=== PATIENT | female | born 1980 | race Caucasian/White ===

== ENCOUNTER → 2022-03-17 15:36 | Outpatient (CLI) | payer OTHER, MEDICAID, SELFPAY ==
--- NOTE | 2022-03-17 | DI.MG.S_ITS ---
BILATERAL DIGITAL SCREENING MAMMOGRAM 3D/2D WITH CAD: 03/17/2022 CLINICAL: Routine screening. Baseline exam. No prior exams were available for comparison. Both breasts are heterogeneously dense, which may obscure small masses (category c / 51-75% glandular tissue). Current study was also evaluated with a Computer Aided Detection (CAD) system. No significant masses, calcifications, or other findings are seen in either breast. IMPRESSION: NEGATIVE There is no mammographic evidence of malignancy. A 1 year screening mammogram is recommended. Based on the Tyrer Cuzick model (a risk assessment model) the patient's lifetime risk is 10.2% and her 10 year risk is 1.6%. According to the ACR, ACS, and NCCN guidelines, an annual breast MRI exam along with mammogram is recommended if the patient's lifetime risk is 20% or greater. This exam was interpreted at Station ID: [id number]. NOTE: For mammograms, a report in lay terms will be sent to the patient. Approximately 15% of breast malignancies will not be visualized mammographically. In the management of a palpable breast mass, a negative mammogram must not discourage biopsy of a clinically suspicious lesion. Electronically Signed By: Nito Soliman M.D., jr/jimmy:03/18/2022 13:54:02 letter sent: Normal Exam ACR BI-RADS Category 1: Negative 3341F
== END ==
PROVIDERS: PCP Family Medicine; Referring Provider Family Medicine; Visit Provider Family Medicine
DX: Z12.31 Encounter for screening mammogram for malignant neoplasm of breast (principal)
CPT/HCPCS: 77063; 77067

== ENCOUNTER 2022-06-16 22:45 | Emergency (ER) | payer OTHER, MEDICAID, SELFPAY ==
[2022-06-16 22:56] VITALS: BP 116/67; PULSE 86; RESP 17; TEMP 36.4; O2SAT 97; BMI 35.7
[2022-06-16 23:01] VITALS: BP 118/67; PULSE 82; RESP 16; TEMP 36.4; O2SAT 98
--- NOTE | 2022-06-16 23:51 | ED_ITS ---
HPI - Wound/Laceration General Chief Complaint: Wound/Laceration Stated Complaint: lt finger cut Time Seen by Provider: 06/16/22 23:32 Source: patient Mode of arrival: Ambulatory Limitations: no limitations History of Present Illness HPI narrative: This is a 41-year-old female who presents with complaint of laceration to the 2nd finger on her left hand. Patient was scooping ice cream with a butter knife. Patient states she went to apply some additional pressure and it slipped and struck her opposite hand in the 2nd finger causing a laceration. She states seems to be deep blood quite a bit. She denies any numbness, tingling or weakness she states she can take it through full range of motion. She denies any other injuries. Patient states tetanus is not currently up-to-date. She states she gets steroid injections into her eyes and occasionally gets migraines but no other medical issues. Patient does vape, occasional alcohol, no illicit. Has primary care that she follows with. She is accompanied by her brother. Related Data Allergies Allergy/AdvReac Type Severity Reaction Status Date / Time No Known Drug Allergies Allergy Verified 06/16/22 22:56 Review of Systems Review of Systems ROS Unobtainable: All systems reviewed & are unremarkable except as noted in HPI and below Patient History tobacco type: vaping alcohol intake frequency: a few times a month Substance Use Type: does not use Exam Narrative Exam Narrative: GENERAL: Alert and oriented x three, female in mild distress HEENT: Head normocephalic, atraumatic, EOMI, pupils reactive, face symmetric, moist mucous membranes NECK: Supple, full range of motion EXTREMITIES: Normal range of motion, no clubbing or edema. Neurovascularly intact. Patient has laceration to the base of the 2nd digit on left hand, linear through the subcutaneous tissue, no tendon or ligamentous involvement. No bony exposure. It is on the palmar side of the 2nd digit just distal to the distal proximal interphalangeal joint. Patient has full range of motion. Full flexion, extension, adduction and abduction. Patient cap refill less than 2 seconds. Normal sensation throughout. No other injuries or skin changes. NEUROLOGICAL: Cranial nerves II through XII grossly intact. Moving all extremities SKIN: Warm, dry, no petechiae, no rashes or lesions. Initial Vital Signs Initial Vital Signs: Vital Signs Temperature 97.6 F 06/16/22 22:56 Pulse Rate 86 06/16/22 22:56 Respiratory Rate 17 06/16/22 22:56 Blood Pressure 116/67 06/16/22 22:56 Pulse Oximetry 97 06/16/22 22:56 Oxygen Delivery Method Room Air 06/16/22 22:56 Procedures Laceration Repair Laceration 1: Site: hand (Second finger left hand) Size (cm): 2.3 Description: linear Depth: simple, single layer Local Anesthetic: lidocaine 1% and lidocaine 2% Amount of anesthesia used (mL): 4 Pre-repair: wound explored, irrigated extensively and deep structures intact Skin layer closed with: nylon Skin layer suture size: 5-0 Number of sutures: 5 Technique: simple, interrupted Course Orders Ordered: Discontinued Medications Diphtheria/Tetanus/Acell Pertussis (Tet,Diph,Pertuss(Acell),Vac/Pf 0.5 Ml Syringe) 0.5 ml IM .ONCE ONE Stop: 06/16/22 23:05 Last Admin: 06/16/22 23:58 Dose: 0.5 ml Documented By: HNG Vital Signs Vital signs: Vital Signs - 8 hr 06/16/22 22:56 06/16/22 23:01 Temperature 97.6 F 97.6 F Pulse Rate 86 82 Respiratory Rate 17 16 Blood Pressure 116/67 118/67 Pulse Oximetry 97 98 Oxygen Delivery Method Room Air Room Air MDM - Wound/Laceration MDM Narrative Medical decision making narrative: 41-year-old female laceration to the proximal 2nd finger on the left hand. Lacerations linear with gape and subcutaneous, patient was numbed, irrigated and closed with 5 0 nylon. Splint to help prevent hyperextension to keep switches from pulling through. Discussed signs and symptoms, return precautions. Patient did have some numbness extending down the finger after lidocaine was applied discussed this should wear off after about an hour. Patient was checked before and had full sensation throughout before lidocaine was injected. Discharge Plan Departure Patient Disposition: Home Clinical Impression: Finger laceration Instructions: DI for Laceration Repair Activity Restrictions/Additional Instructions: Return to the ED, urgent care, or vist a primary care doctor for removal or suture or nikhil in 7-10 days for removal. Use splint to remind yourself not to hyperextend your finger Wound Care: Keep wound(s) clean and dry. Wash daily with soap and water only. Do not use over the counter products (alcohol or peroxide)on the wounds unless instructed by a physician, you may use triple antibiotic ointment to the affected area twice daily. If wound condition worsens (increased/expanding redness, developing fluid blisters, or worsening pain), either contact your doctor for an urgent re- assessment , or return to the Emergency Department. Return to the Emergency Department for any new or worsening symptoms. Return if fever greater than 100.4 Fahrenheit, increased swelling, increasing pain or worsening symptoms such as increased discharge or spreading redness. Referrals: Sarah Go ARNP [Primary Care Provider] - Stand Alone Forms: Patient Portal/API
[2022-06-16] MEDS: TET,DIPH,PERTUSS(ACELL),VAC/PF 0.5 ML SYRINGE IM (23:58)
== END 2022-06-17 00:39 | disposition home or self-care (01) ==
PROVIDERS: Emergency Provider Emergency Medicine; PCP Family Medicine
DX: S61.211A Laceration without foreign body of left index finger without damage to nail, initial encounter (principal); W26.0XXA Contact with knife, initial encounter; Z23 Encounter for immunization
CPT/HCPCS: 12001; 29130; 90471; 99283; 90715

== ENCOUNTER → 2022-11-25 10:22 | Outpatient (CLI) | payer OTHER, MEDICAID, SELFPAY ==
--- NOTE | 2022-11-25 | DI.RAD.S_ITS ---
Bone Density Report Name: BEHZAD CUADRA Age: 41 Sex: Female Ethnicity: White Date of : 1980 Indication: postmenopausal; history of glucocorticoids; Referring Provider: DAVID COLLINS Study: Bone densitometry was performed. Exam Date: November 25, 2022 Accession number: [id number] Bone Density: Region BMD T-score Z-score Classification AP Spine(L1-L4) 0.837 -1.9 -1.5 Osteopenia Femoral Neck (Left) 0.766 -0.8 -0.4 Normal Total Hip (Left) 0.912 -0.2 0.0 Normal Femoral Neck (Right) 0.878 0.3 0.7 Normal Total Hip (Right) 0.953 0.1 0.4 Normal Total Hip Mean 0.933 -0.1 0.2 Normal World Health Organization criteria for BMD impression classify patients as: Normal (T-score at or above -1.0), Osteopenia (T-score between -1.0 and -2.5), or Osteoporosis (T-score at or below -2.5). 10-year Fracture Risk(1): Major Osteoporotic Fracture 3.6% Hip Fracture 0.1% Reported Risk Factors: [place] (), Neck BMD=0.766, BMI=37.4, glucocorticoids (1) FRAX(R) Version 3.08. Fracture probability calculated for an untreated patient. Fracture probability may be lower if the patient has received treatment. Impression: The patient has low bone mass, based on the Total Spine T-score. The patient has an estimated ten-year risk of hip fracture of 0.1% and an estimated ten-year risk of major fracture of 3.6%, based on the WHO FRAX algorithm. The patient has risk factors, including: history of glucocorticoid therapy. Discussion: BONE DENSITY IS LOW AT ONE OR MORE SKELETAL SITES. This patient's lowest T-score is low at one or more skeletal sites. It meets the World Health Organization's (WHO) criteria for low bone mass (T-score between -1.0 and -2.5). The patient's 10-year risk of fracture as calculated by FRAX is less than the threshold where pharmacological therapy is recommended by the National Osteoporosis Foundation (NOF). However, all treatment decisions require clinical judgment and consideration of individual patient factors, including patient preferences, comorbidities, previous drug use, risk factors not captured in the FRAX model (e.g., frailty, falls, vitamin D deficiency, increased bone turnover, interval significant decline in bone density) and possible under or overestimation of fracture risk by FRAX. The patient should follow a healthful lifestyle (good nutrition with adequate calcium and vitamin D, and appropriate weight-bearing exercise). Follow-Up: Consider repeating this study in 2 to 3 years to reassess this patient's status, or sooner if there is some new clinical indication. Reported by: JENNIFER JULIAN M.D. on 11/25/2022 11:32:00 AM.
== END ==
PROVIDERS: PCP Nurse Practitioner Family; Referring Provider Nurse Practitioner Family; Visit Provider Nurse Practitioner Family
DX: Z13.820 Encounter for screening for osteoporosis (principal); E28.310 Symptomatic premature menopause; M85.88 Other specified disorders of bone density and structure, other site; Z92.241 Personal history of systemic steroid therapy
CPT/HCPCS: 77080

== ENCOUNTER → 2022-12-30 14:24 | Outpatient (CLI) | payer OTHER, MEDICAID, SELFPAY ==
--- NOTE | 2022-12-30 | DI.US.S_ITS ---
PROCEDURE: US PELVIC COMPLETE INDICATIONS: LEFT LOWER QUADRANT PAIN TECHNIQUE: Real-time scanning was performed of the pelvic organs, with image documentation. Additional endovaginal scanning was necessary due to incomplete visualization of the adnexal and endometrial structures by transabdominal scanning. COMPARISON: [facility], US, PELVIC COMPLETE, 07/03/2014, 15:16. FINDINGS: Uterus: Uterus is anteverted and normal in size at 6.0 x 2.6 x 3.6 cm. The myometrium is homogeneous. The endometrium measures 3 mm combined thickness. Ovaries: The right ovary measures 1.1 x 1.3 x 1.1 cm, with a calculated ovarian volume of 0.8 cc. The left ovary is not visualized. There are fewer than 12 follicles in the right ovary. No adnexal masses are seen. Other: No pathologic free abdominal or pelvic fluid. IMPRESSION: 1. Unremarkable pelvic ultrasound. However, the left ovary was not visualized. We strive to produce accurate, complete, and clear reports of imaging services. To assist us in improving patient care, this report was composed using standard report templates and voice recognition software. Therefore, it may contain abnormal punctuation, insertions and/or omissions. Occasional wrong-word or sound-alike substitutions may occur. Though we review the report and make efforts to correct it, we do recommend that the report be read carefully in proper context to recognize any text inaccuracies. Dictated by: Mellisa Paniagua M.D. on 12/30/2022 at 16:04 Approved by: Mellisa Paniagua M.D. on 12/30/2022 at 16:05
== END ==
PROVIDERS: PCP Nurse Practitioner Family; Referring Provider Nurse Practitioner Family; Visit Provider Nurse Practitioner Family
DX: R10.32 Left lower quadrant pain (principal); R19.04 Left lower quadrant abdominal swelling, mass and lump
CPT/HCPCS: 76830; 76856; 93976

== ENCOUNTER → 2023-01-05 13:04 | Outpatient (CLI) | payer OTHER, MEDICAID, SELFPAY ==
--- NOTE | 2023-01-05 13:06 | DI.CT.S_ITS ---
PROCEDURE: CT ABDOMEN PELVIS W CON INDICATIONS: Left lower quadrant pain TECHNIQUE: After the administration of oral and intravenous contrast, axial sections were acquired from the lung bases to the pubic symphysis. Coronal and sagittal reformats were performed. For radiation dose reduction, the following was used: automated exposure control, adjustment of mA and/or kV according to patient size. COMPARISON Old:[facility], CR, XR DEXA AXIAL SKELETON, 11/25/2022, 10:49. FINDINGS: Image quality: Excellent. Lung bases: Unremarkable. Heart/mediastinum: There are bilateral pathologically enlarged hilar lymph nodes as well as a subcarinal lymph node. For instance, a left hilar lymph node on image 2/2 measures 2.0 x 1.7 cm. On that same image, there is a subcarinal lymph node which measures 2.7 x 1.9 cm. There is also a right hilar lymph node on that image measuring 1.8 cm. ABDOMEN: Liver: No solid masses. Gallbladder: Unremarkable without calcified gallstones. Biliary ducts: Unremarkable. Pancreas: Unremarkable. Spleen: No splenomegaly.. Adrenal Glands: Unremarkable. Kidneys and Ureters: Unremarkable. Stomach and Bowel: The descending colon and sigmoid and rectum are decompressed. This is felt to be the cause of bowel wall prominence. However, distal colitis is not entirely excluded. The right colon and transverse colon are unremarkable. Peritoneum: No abnormal intraperitoneal fluid. No free air. Ventral Wall: No hernia. Abdominal Nodes: No retroperitoneal or mesenteric adenopathy by size criteria. Vessels: Aorta and inferior vena cava are normal in size. PELVIS: Pelvic Organs: Unremarkable. Bladder: Unremarkable. Pelvic Nodes: No enlarged lymph nodes. Miscellaneous: No inguinal hernias are seen. Bones: Lumbar degenerative change. No lytic or blastic bony lesions. No compression fractures. There are bilateral L5 pars defects. There is a mild chronic compression of T11. IMPRESSION: 1. There is mediastinal and subcarinal adenopathy period the entirety the mediastinum is not evaluated. This may potentially be related to benign or malignant causes. Sarcoidosis is a possibility. Cannot exclude malignancy such as lymphoma. 2. No findings suspicious for malignancy in the abdomen and pelvis. 3. The appearance of the left colon and sigmoid most likely represents a decompressed state. However, cannot exclude distal colitis. Recommend clinical correlation. 4. Bilateral L5 pars defects 5. Old T11 compression fracture. Comment: Recommend CT chest with contrast for further evaluation of lymphadenopathy in the chest. Dictated by: Nathan Ashford M.D. on 01/05/2023 at 18:09 Approved by: Nathan Ashford M.D. on 01/05/2023 at 18:17
== END ==
PROVIDERS: PCP Nurse Practitioner Family; Referring Provider Nurse Practitioner Family; Visit Provider Nurse Practitioner Family
DX: R59.0 Localized enlarged lymph nodes (principal); R10.32 Left lower quadrant pain; R19.04 Left lower quadrant abdominal swelling, mass and lump; M48.54XS Collapsed vertebra, not elsewhere classified, thoracic region, sequela of fracture; M47.816 Spondylosis without myelopathy or radiculopathy, lumbar region
CPT/HCPCS: 74177

== ENCOUNTER 2023-01-13 14:13 | Day surgery (SDC) | payer OTHER, MEDICAID, SELFPAY ==
[2023-01-13] MEDS: LACTATED RINGERS 1,000 ML 150 ML IV (14:00)
[2023-01-13 15:05] VITALS: BP 109/74; PULSE 94; RESP 20; TEMP 36.2; O2SAT 98; BMI 37.9
--- NOTE | 2023-01-13 15:16 | P.HP_ITS ---
History of Present Illness History of Present Illness Date Patient Seen: 01/13/23 Chief complaint: Dx Colonoscopy w/band ligation Narrative: 42-year-old female PMH obesity here for diagnostic colonoscopy. Years of intermittent rectal bleeding presumed to be hemorrhoid disease. Minimal i mprovement with topical medication. No family history of intestinal malignancy PFSH Surgical History (System 06/17/22 @ 11:22 by Lady Katiana Cline) Status post ovarian cystectomy Status post delivery Status post delivery Family History (System 06/17/22 @ 11:22 by Lady Katiana Cline) Grandmother DM type 2 (diabetes mellitus, type 2) Social History (System 06/17/22 @ 11:22 by Lady Katiana Cline) household members: family Smoking Status: Never smoker Meds Home Medications and Allergies Home Medications Medication Instructions Recorded Confirmed Type IBUPROFEN (Motrin / Advil) 800 mg PO PRN ##0 11/12/07 History peg 3350-electrolytes 236 240 ml PO Q10M #4,000 mL 01/05/23 Rx gram-22.74 gram-6.74 gram-5.86 gram solution (Golytely) Allergies Allergy/AdvReac Type Severity Reaction Status Date / Time No Known Drug Allergies Allergy Verified 01/13/23 15:11 Exam Vital Signs (past 8 hours): - 01/13/23 15:05 Temperature 97.1 F L Pulse Rate 94 H Respiratory Rate 20 Blood Pressure 109/74 Pulse Oximetry 98 Oxygen Delivery Method Room Air Oxygen Delivery Method Room Air Narrative Exam Narrative: General adult woman alert oriented no acute distress Chest nonlabored respiration Extremities warm well perfused Assessment & Plan Assessment and plan (1) Rectal bleeding: Status: Acute Assessment & Plan narrative: 42-year-old woman with rectal bleeding here for diagnostic colonoscopy possible hemorrhoidal banding. Technical details were discussed. Risks, benefits, alternatives explained. R isks including but not limited to myocardial infarction, aspiration, bleeding, pain, missed lesion, incomplete examination, need for further radiographic studies, colonic perforation, and need for major abdominal surgery were discussed. All questions were answered to their satisfaction, and they are in agreement with this plan.
[2023-01-13 15:39] VITALS: BP 104/65; PULSE 85; RESP 14; TEMP 36.5; O2SAT 95
[2023-01-13 15:44] VITALS: BP 108/66; PULSE 81; RESP 16; TEMP 36.1; O2SAT 98
--- NOTE | 2023-01-13 15:48 | P.OP.COLON_ITS ---
Operative Date/Time/Diagnoses Date of procedure: 01/13/23 Time of procedure: 15:48 Pre-op diagnosis: Rectal bleeding Post-op diagnosis: other (Internal hemorrhoid) Procedure & Clinicians Study performed: Diagnostic Colonoscopy and hemorrhoidal banding x1 Same procedure as scheduled: Yes Indications: Rectal bleeding Surgeon: Augustin Stapleton Procedure Notes Procedure in detail: The history and physical was performed/updated and the patient is ASA class is 2. The procedure was discussed in detail with the patient. Potential risks complications including infection, bleeding, missed diagnosis, perforation, need for surgery, and were explained. Their questions were answered and informed consent was obtained. Patient was brought to the procedure room and placed standard monitoring equipment. The patient's vital signs were monitored continuously throughout the entire procedure. Prior to starting time-out was performed. The patient was placed in the left lateral recumbent position. Procedural sedation was administered by anesthesia. Examination began with a thorough inspection of the perianal area there was no evidence of fissures, fistulae, external hemorrhoids or cutaneous malignancy. The colonoscopy scope was then placed into the anal canal and was advanced to the cecum, which was identified by the ileocecal valve, the appendiceal orifice and the confluence of the taenia. The scope was then slowly withdrawn examining colon thoroughly in all directions, irrigating it of any residual stool. The scope was retroflexed within the rectum. The patient tolerated the procedure well. They will be discharged once criteria are met. The prep was of good/excellent quality. The withdrawl time was 7 minutes. FINDINGS * No masses or polyps * Right posterior grade 2 internal hemorrhoid. Remainder of the hemorrhoids present at the right anterior and left lateral are grade 1 and not large enough for banding * Following the completion of the colonoscopy a anoscope was placed. As described above the right posterior hemorrhoid pedicle was sized enough amenable to banding the remaining 2 were not large enough. The pedicle was grasped with suction and then doubly ligated at its base. Tolerated the procedure well was transferred to recovering. Specimen(s): none sent Impression: Internal hemorrhoid Post-procedure Recommendations: Colonoscopy in 10 years and High fiber diet Plan for aftercare: Avoid straining/constipation Disposition: same day surgery
[2023-01-13 15:49] VITALS: BP 110/66; PULSE 93; RESP 16; O2SAT 99
[2023-01-13 15:56] VITALS: BP 120/78; PULSE 82; RESP 18; TEMP 36.1; O2SAT 99
== END 2023-01-13 16:49 | disposition home or self-care (01) ==
PROVIDERS: PCP Nurse Practitioner Family; Referring Provider Surgery; Visit Provider Surgery
PROC: 0DJD8ZZ Inspection of Lower Intestinal Tract, Via Natural or Artificial Opening Endoscopic (ICD-10-PCS; CPT 45378; principal; 2023-01-13 14:00)
DX: K62.5 Hemorrhage of anus and rectum (principal); K64.1 Second degree hemorrhoids
CPT/HCPCS: 46221; 45378; J2704

== ENCOUNTER → 2023-03-20 10:00 | Outpatient (CLI) | payer OTHER, MEDICAID, SELFPAY ==
--- NOTE | 2023-03-20 10:02 | DI.MG.S_ITS ---
BILATERAL DIGITAL SCREENING MAMMOGRAM 3D/2D WITH CAD: 03/20/2023 CLINICAL: Routine screening. Comparison is made to exams dated: 03/17/2022 mammogram and 03/17/2022 mammogram - [facility]. There are scattered areas of fibroglandular density in both breasts (category b / 25%-50% glandular tissue). Current study was also evaluated with a Computer Aided Detection (CAD) system. No significant masses, calcifications, or other findings are seen in either breast. There has been no significant interval change. IMPRESSION: NEGATIVE There is no mammographic evidence of malignancy. A 1 year screening mammogram is recommended. Based on the Tyrer Cuzick model (a risk assessment model) the patient's lifetime risk is 6.8% and her 10 year risk is 1.1%. According to the ACR, ACS, and NCCN guidelines, an annual breast MRI exam along with mammogram is recommended if the patient's lifetime risk is 20% or greater. This exam was interpreted at Station ID: [id number]. NOTE: For mammograms, a report in lay terms will be sent to the patient. Approximately 15% of breast malignancies will not be visualized mammographically. In the management of a palpable breast mass, a negative mammogram must not discourage biopsy of a clinically suspicious lesion. Electronically Signed By: Geetha flores/jimmy:03/20/2023 10:33:25 letter sent: Normal Exam ACR BI-RADS Category 1: Negative 3341F
== END ==
PROVIDERS: PCP Nurse Practitioner Family; Referring Provider Nurse Practitioner Family; Visit Provider Nurse Practitioner Family
DX: Z12.31 Encounter for screening mammogram for malignant neoplasm of breast (principal); R92.323 Mammographic fibroglandular density, bilateral breasts
CPT/HCPCS: 77063; 77067

== ENCOUNTER → 2023-10-27 11:50 | Outpatient (CLI) | payer OTHER, MEDICAID, SELFPAY ==
--- NOTE | 2023-10-27 11:51 | DI.CT.S_ITS ---
PROCEDURE: CT CHEST W CON INDICATIONS: FU LLQ MASS SWELLING,ENL LYMP NODES,PAIN LLQ ABD TECHNIQUE: After the administration of intravenous contrast, 5 mm thick sections acquired from the pulmonary apices to the posterior costophrenic angles. 1 mm axial lung, 5 mm thick coronal and sagittal reformats and 7 mm axial MIP were acquired. For radiation dose reduction, the following was used: automated exposure control, adjustment of mA and/or kV according to patient size. COMPARISON: [facility], CT, CT ABDOMEN PELVIS W CON, 01/05/2023, 14:15. FINDINGS: Image quality: Diagnostic. Lower Neck: No enlarged lymph nodes. Thyroid: No thyroid nodules which require sonographic follow up, per consensus guidelines. Axillae: No enlarged lymph nodes. Chest Wall: Unremarkable. Bones: Unremarkable except for is stable slight T11 compression fracture previously documented.. Lungs and Pleura: No pneumothorax or pleural effusions. No consolidation or suspicious nodules. Heart: Heart size is normal. No pericardial effusion. Thoracic Vessels: The aorta and pulmonary arteries demonstrate normal size. Mediastinum and Mehreen: The prior CT scan dated 01/05/23 was to evaluate the abdomen/pelvis and happened to include Jose portion of the lower chest and lower mediastinum. The current study extends cephalad to include the entire mediastinum, lower neck, and supraclavicular fossa. Previously present mild adenopathy in the lower mediastinum included on both studies has not worsened. Additional mild adenopathy is seen above the prior field of view but is also comprised of mildly enlarged lymph nodes within the mediastinum. For example, within the middle mediastinum on the right in the precarinal space a short axis dimension 1.8 cm lymph node can be seen. More inferiorly at the right hilum a 3.1 cm lymph node is found. Esophagus: No wall thickening. No hiatal hernia. Upper Abdomen: Visualized upper abdomen solid organs and bowel loops appear normal. IMPRESSION: As discussed above a portion of the lower mediastinum was included on a abdomen/pelvis CT 01/05/23 showing adenopathy that was nonspecific and a coincidental finding in the setting of workup for left lower quadrant pain. The current study includes the entire chest and portions of the lower neck, supraclavicular fossa and axilla. Current study shows no worsening adenopathy and shows additional mild adenopathy more superiorly within the mediastinum but not within the supraclavicular fossa or axilla or lower neck. Previously suggested etiology included sarcoid, and given the absence of definite environmental change analyst time malignant adenopathy is considered less likely. Dictated by: Taz Isaac M.D. on 10/27/2023 at 15:54 Approved by: Taz Isaac M.D. on 10/27/2023 at 16:03
--- NOTE | 2023-10-27 11:51 | DI.US.S_ITS ---
PROCEDURE: US ABDOMEN LIMITED INDICATIONS: LEFT LOWER QUADRANT LUMP TECHNIQUE: Real-time focused scanning was performed of the abdomen, with image documentation. COMPARISON: [facility], US, US PELVIC COMPLETE, 12/30/2022, 14:38. [facility], CT, CT ABDOMEN PELVIS W CON, 01/05/2023, 14:15. FINDINGS: Scanning is performed at the site of the left lower quadrant lump . At this site, there is no ultrasound abnormality seen. No significant abnormality is seen involving the abdominal wall or the left adnexal region. IMPRESSION: No imaging explanation is found for this patient's presenting symptoms. Dictated by: Monster Ye M.D. on 10/27/2023 at 13:50 Approved by: Monster Ye M.D. on 10/27/2023 at 13:51
== END ==
LOC: CT 11:50
PROVIDERS: PCP Nurse Practitioner Family; Referring Provider Nurse Practitioner Family; Visit Provider Nurse Practitioner Family
DX: R59.0 Localized enlarged lymph nodes (principal); R93.89 Abnormal findings on diagnostic imaging of other specified body structures; R10.32 Left lower quadrant pain; R19.04 Left lower quadrant abdominal swelling, mass and lump
CPT/HCPCS: 71260; 76705; Q9967

== ENCOUNTER → 2024-02-15 10:06 | Outpatient (CLI) | payer OTHER, MEDICAID, SELFPAY | PROVIDERS: PCP Nurse Practitioner Family; Referring Provider Internal Medicine; Visit Provider Internal Medicine | DX: R06.02 Shortness of breath (principal); Z87.891 Personal history of nicotine dependence; D86.0 Sarcoidosis of lung | CPT/HCPCS: 94060; 94726; 94729 ==